=== PATIENT | female | born 1960 | race Caucasian/White ===

== ENCOUNTER → 2018-04-03 | Day surgery (SDC) | payer OTHER ==
[~2018-04-03] MED LIST: HYDROCHLOROTHIA25 MG PO; HYOSCYAMINE SULFATE 0.5 MG/ML INJ ONE; LIDOCAINE HCL 2% LOCAL INJ 5 ML SDV VIAL INJ ONE; MELOXICAM15 MG PO; MIDAZOLAM HCL 2 MG/2 ML VIAL ONE; PROPOFOL IV EMULSION 10 MG/ML 50 ML VIAL ONE
--- NOTE | 2018-04-03 19:31 | Operative Report ---
DATE OF PROCEDURE: April 03, 2018 REFERRING PHYSICIAN: Dr. Stefania Singh. PROCEDURE PERFORMED: Colonoscopy and polypectomy. INDICATIONS FOR COLONOSCOPY: Surveillance colonoscopy, personal history of colon polyps. MEDICATION: Patient was done under MAC. Please see anesthesiologist's note. PROCEDURE: With the patient in left lateral decubitus position, a flexible fiberoptic Olympus colonoscope was inserted into the rectum with ease and advanced all the way to the cecum. Mucosa overlying the cecum appeared to be within normal limits. Three polyps were hot biopsied from the ascending colon and one polypectomy site was hemoclipped and one polyp was snared. The transverse colon as well as the descending colon other than for some scattered diverticular disease were within normal limits. Two polyps were hot biopsied from the sigmoid colon and 2 polyps were hot biopsied from the rectum. The scope was then retroflexed into the distal rectum and small internal hemorrhoids were noted; none of which was actively bleeding. The scope was then straightened out and was subsequently withdrawn. Patient tolerated the procedure well. IMPRESSION 1. Ascending colon polyps x4, 3 hot biopsied, 1 site hemoclipped and 1 polyp snared. 2. Rule out lipoma ascending colon. 3. Diverticulosis. 4. Sigmoid colon polyp x2, hot biopsied. 5. Rectal polyp x2, hot biopsied. 6. Internal hemorrhoids, none actively bleeding. PLAN: Follow up histology. Initiate high-fiber, low-fat diet. Initiate high-fiber supplement. Patient might benefit from having a followup colonoscopy in 3years. Job#: [id number] RTY cc:STEFANIA SINGH DO
--- OUTSIDE RECORDS SUMMARY | 2018-04-05 13:36 | XMS REPORT ---
Author Author Belle May Organization [employer] Address Unknown Phone Unavailable Care Team Providers Care Pallet Stone Positioner Name Role Phone Belle May CP Unavailable Allergies No Known Allergies Problems Problem Type Condition Code Onset Dates Condition Status Problem BMI 34.0-34.9,adult Z68.34 Active Problem Obesity (BMI 30.0-34.9) E66.9 Active Problem Family history of early CAD Z82.49 Active Problem Vitamin D deficiency E55.9 Active Problem Prediabetes R73.09 Active Medications No Known Medications Results No Known Results Summary Purpose eClinicalWorks Submission
--- OUTSIDE RECORDS SUMMARY | 2018-04-05 13:36 | XMS REPORT | Continuity of Care Document ---
Author Author [facility] Interface Address Unknown Phone Unavailable Problems Problem Status Onset Date Classification Date Reported Comments Source BMI 34.0-34.9,adult Active Problem 02/06/2018 [facility] Obesity Active Problem 03/09/2018 [facility] Family history of early CAD Active Problem 02/06/2018 [facility] Vitamin D deficiency Active Problem 03/09/2018 [facility] Prediabetes Active Problem 03/09/2018 [facility] Family history of ischemic heart disease and other diseases of the circulatory system Active Diagnosis 03/05/2017 [facility] Right foot pain Active Diagnosis 02/06/2018 [facility] Primary osteoarthritis of left knee Active Problem 02/06/2018 [facility] Other iron deficiency anemia Active Problem 03/09/2018 [facility] HTN , benign Active Problem 03/09/2018 [facility] Leukocytosis, unspecified Active Problem 03/09/2018 [facility] Post-nasal drainage Active Diagnosis 10/09/2017 [facility] Sore throat Active Diagnosis 10/09/2017 [facility] BMI 33.0-33.9,adult Active Problem 03/09/2018 [facility] Overweight Active Problem 11/21/2016 [facility] Anemia, unspecified type Active Diagnosis 01/27/2018 [facility] Encntr for general adult medical exam w/o abnormal findings Active Diagnosis 03/05/2017 [facility] Screening for colon cancer Active Diagnosis 03/05/2017 [facility] Cough Active Diagnosis 11/21/2016 [facility] Routine general medical examination at a health care facility Active Diagnosis 03/09/2018 [facility] History of total left knee replacement Active Problem 03/09/2018 [facility] History of foot fracture Active Diagnosis 03/09/2018 [facility] Encounter for screening colonoscopy Active Diagnosis 03/09/2018 [facility] Encounter for screening mammogram for breast cancer Active Diagnosis 03/09/2018 [facility] Microscopic hematuria Active Diagnosis 04/17/2016 [facility] Lesion or mass of paranasal sinuses Active Diagnosis 03/19/2016 [facility] Abnormal laboratory test Active Diagnosis 03/07/2016 [facility] Abnormal urinalysis Active Diagnosis 03/07/2016 [facility] Right ankle pain Active Diagnosis 10/25/2015 [facility] Mass of sinus Active Diagnosis 03/03/2016 [facility] Encounter for immunization Active Diagnosis 03/03/2016 [facility] Menopausal and postmenopausal disorder Active Diagnosis 03/03/2016 [facility] Medications Medication Details Route Status Patient Instructions Ordering Provider Order Date Source Augmentin 1 tablet Orally Active 875-125 MG Orally every 12 hrs Robb 11/18/2016 [facility] Vitamin D (Ergocalciferol) 1 capsule Orally Active 75871 UNIT Orally Once a week Skyler 03/04/2016 [facility] Enoxaparin Sodium not defined Subcutaneous Active 30 MG/0.3ML Subcutaneous Joseluis [facility] Meloxicam 1 tablet Orally Active 15 MG Orally Once a day Skyler [facility] Hydrocodone-Acetaminophen (Schedule II Drug) TK 1 TO 2 TS PO Q 6 TO 8 H PRN P Oral Active 10-325 MG Oral Skyler [facility] Cephalexin TK ONE C PO QID Oral Active 500 MG Oral Joseluis [facility] Hydrochlorothiazide 1 tablet in the morning Orally Active 25 MG Orally Once a day Skyler [facility] NO OTC meds taken not defined NA Active Joseluis [facility] Meloxicam 1 tablet Orally Active 15 MG Orally Once a day Joseluis [facility] NO OTC meds taken Unknown NA Active Skyler [facility] Meloxicam 1 tablet Orally Active 15 MG Orally Once a day [place] [facility] Allergies, Adverse Reactions, Alerts Substance Category Reaction Severity Reaction type Status Date Reported Comments Source N.K.D.A. Adverse Reaction Info Not Available Adverse Reaction Active 03/02/2018 [facility] Immunizations Immunization Date Given Site Status Last Updated Comments Source FLU 3YRS & [place] [id number] 02/29/2016 completed [facility] Results Order Name Results Value Reference Range Date Interpretation Comments Source Vital Signs Vital Sign Value Date Comments Source Weight 197 03/02/2018 [facility] Height 64 03/02/2018 [facility] Heart Rate 86 03/02/2018 [facility] Diastolic (mm Hg) 72 03/02/2018 [facility] Systolic (mm Hg) 126 03/02/2018 [facility] Weight 199 02/04/2018 [facility] Height 64 02/04/2018 [facility] Heart Rate 114 02/04/2018 [facility] Diastolic (mm Hg) 84 02/04/2018 [facility] Systolic (mm Hg) 138 02/04/2018 [facility] Weight 206 01/25/2018 [facility] Height 64 01/25/2018 [facility] Temperature Oral (F) 98.5 F 01/25/2018 [facility] Heart Rate 101 01/25/2018 [facility] Diastolic (mm Hg) 84 01/25/2018 [facility] Systolic (mm Hg) 144 01/25/2018 [facility] Weight 205 10/08/2017 [facility] Height 64 10/08/2017 [facility] Temperature Oral (F) 98.3 F 10/08/2017 [facility] Heart Rate 87 10/08/2017 [facility] Diastolic (mm Hg) 80 10/08/2017 [facility] Systolic (mm Hg) 140 10/08/2017 [facility] Weight 200 03/02/2017 [facility] Height 64 03/02/2017 [facility] Heart Rate 84 03/02/2017 [facility] Diastolic (mm Hg) 80 03/02/2017 [facility] Systolic (mm Hg) 124 03/02/2017 [facility] Weight 208 11/18/2016 [facility] Height 64 11/18/2016 [facility] Temperature Oral (F) 98.5 F 11/18/2016 [facility] Heart Rate 101 11/18/2016 [facility] Diastolic (mm Hg) 84 11/18/2016 [facility] Systolic (mm Hg) 120 11/18/2016 [facility] Weight 200 02/29/2016 [facility] Height 64 02/29/2016 [facility] Diastolic (mm Hg) 74 02/29/2016 [facility] Systolic (mm Hg) 126 02/29/2016 [facility] Weight 201 10/19/2015 [facility] Height 64 10/19/2015 [facility] Heart Rate 82 10/19/2015 [facility] Diastolic (mm Hg) 74 10/19/2015 [facility] Systolic (mm Hg) 118 10/19/2015 [facility] Weight 194 03/13/2015 [facility] Height 64 03/13/2015 [facility] Diastolic (mm Hg) 76 03/13/2015 [facility] Systolic (mm Hg) 124 03/13/2015 [facility] Weight 194 02/27/2015 [facility] Height 64 02/27/2015 [facility] Heart Rate 78 02/27/2015 [facility] Diastolic (mm Hg) 72 02/27/2015 [facility] Systolic (mm Hg) 116 02/27/2015 [facility] Encounters Location Location Details Encounter Type Encounter Number Reason For Visit Attending Provider ADM Date DC Date Status Source [facility] PHYSICAL EXAM/FBW [id number] 02/27/2015 02/27/2015 [facility] PHYSICAL EXAM/FBW [id number] 02/27/2015 02/27/2015 [facility] PHYSICAL EXAM/FBW [id number] 02/27/2015 02/27/2015 [facility] PHYSICAL EXAM/FBW [id number] 02/27/2015 02/27/2015 [facility] PHYSICAL EXAM/FBW [id number] 02/27/2015 02/27/2015 [facility] PHYSICAL EXAM/FBW [id number] 02/27/2015 02/27/2015 [facility] PHYSICAL EXAM/FBW [id number] 02/27/2015 02/27/2015 [facility] PHYSICAL EXAM/FBW [id number] 02/27/2015 02/27/2015 [facility] PHYSICAL EXAM/FBW [id number] 02/27/2015 02/27/2015 [facility] PHYSICAL EXAM/FBW [id number] 02/27/2015 02/27/2015 [facility] 2 week follow up [id number] 03/13/2015 03/13/2015 [facility] 2 week follow up [id number] 03/13/2015 03/13/2015 [facility] 2 week follow up [id number] 03/13/2015 03/13/2015 [facility] 2 week follow up [id number] 03/13/2015 03/13/2015 [facility] 2 week follow up [id number] 03/13/2015 03/13/2015 [facility] 2 week follow up [id number] 03/13/2015 03/13/2015 [facility] 2 week follow up [id number] 03/13/2015 03/13/2015 [facility] 2 week follow up [id number] 03/13/2015 03/13/2015 [facility] 2 week follow up [id number] 03/13/2015 03/13/2015 [facility] right ankle is swollen [id number] 10/19/2015 10/19/2015 [facility] right ankle is swollen [id number] 10/19/2015 10/19/2015 [facility] right ankle is swollen [id number] 10/19/2015 10/19/2015 [facility] right ankle is swollen [id number] 10/19/2015 10/19/2015 [facility] right ankle is swollen [id number] 10/19/2015 10/19/2015 [facility] right ankle is swollen [id number] 10/19/2015 10/19/2015 [facility] right ankle is swollen [id number] 10/19/2015 10/19/2015 [facility] right ankle is swollen [id number] 10/19/2015 10/19/2015 [facility] PHYSICAL/FBW [id number] 02/29/2016 02/29/2016 [facility] PHYSICAL/FBW [id number] 02/29/2016 02/29/2016 [facility] PHYSICAL/FBW [id number] 02/29/2016 02/29/2016 [facility] PHYSICAL/FBW [id number] 02/29/2016 02/29/2016 [facility] PHYSICAL/FBW [id number] 02/29/2016 02/29/2016 [facility] PHYSICAL/FBW [id number] 02/29/2016 02/29/2016 [facility] PHYSICAL/FBW [id number] 02/29/2016 02/29/2016 [facility] Test results [id number] 03/04/2016 03/04/2016 [facility] Test results [id number] 03/04/2016 03/04/2016 [facility] Test results [id number] 03/04/2016 03/04/2016 [facility] Test results [id number] 03/04/2016 03/04/2016 [facility] Test results [id number] 03/04/2016 03/04/2016 [facility] Test results [id number] 03/04/2016 03/04/2016 [facility] redo urinals [id number] 03/06/2016 03/06/2016 [facility] redo urinals [id number] 03/06/2016 03/06/2016 [facility] redo urinals [id number] 03/06/2016 03/06/2016 [facility] redo urinals [id number] 03/06/2016 03/06/2016 [facility] redo urinals [id number] 03/06/2016 03/06/2016 [facility] referrel [id number] 03/06/2016 03/06/2016 [facility] referrel [id number] 03/06/2016 03/06/2016 [facility] referrel [id number] 03/06/2016 03/06/2016 [facility] referrel [id number] 03/06/2016 03/06/2016 [facility] Unknown [id number] 03/18/2016 03/18/2016 [facility] Unknown [id number] 03/18/2016 03/18/2016 [facility] Unknown [id number] 03/18/2016 03/18/2016 [facility] Test results [id number] 04/09/2016 04/09/2016 [facility] Test results [id number] 04/09/2016 04/09/2016 [facility] Retroperitoneal eg,renal,aorta,nodes complete - US/ Richard [id number] 04/16/2016 04/16/2016 [facility] Internal [facility] Procedures Procedure Code Date Perfomer Comments Source
--- OUTSIDE RECORDS SUMMARY | 2018-04-05 13:37 | XMS REPORT ---
Author Richard Allen [facility] eClinicalWorks Address Unknown Phone Unavailable Care Team Providers Care Mechanical Manufacturing Technician Name Role Phone Richard Holland Unavailable Encounters Encounter Location Date PHYSICAL/FBW [facility] Feb 29, 2016 Test results [facility] Mar 04, [address] [facility] Mar 06[facility] [address] [facility] Mar 06, 2016 PHYSICAL EXAM/FBW [facility] Feb 27, 2015 2 week follow up [facility] Mar 13, 2015 right ankle is swollen [facility] October 19, 2015 Unknown [facility] Mar 18, 2016 Problems Problem Type Condition ICD-9 Code Onset Dates Condition Status Problem Obesity (BMI 30.0-34.9) E66.9 Active Problem Vitamin D deficiency E55.9 Active Problem BMI 34.0-34.9,adult Z68.34 Active Problem Overweight E66.3 Active Assessment Lesion or mass of paranasal sinuses J34.89 Active Problem Prediabetes R73.09 Active Problem BMI 33.0-33.9,adult Z68.33 Active Social History Social History Element Qualifiers Date Reported Ethnicity . Status , Is lao your primary language? Yes Feb 29, 2016 children . 3 Feb 29, 2016 Tobacco Use: . Are you a: never smoker Feb 29, 2016 Use of recreational / street drugs? . Answer: No Feb 29, 2016 Where or with whom do you live ? . 3 Feb 29, 2016 Do you have pets? . Status: No Feb 29, 2016 Marital Status: . Feb 29, 2016 Caffeine intake? . Status: Yes, What type: Coffee, Soft Drinks, 1 - 2 cup(s) a day, 1 -2 can(s)/bottle(s) a day Feb 29, 2016 Do you exercise? . Answer: Yes, Type: walking Feb 29, 2016 Do you drink alcohol? . 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
--- OUTSIDE RECORDS SUMMARY | 2018-04-05 13:37 | XMS REPORT ---
Author Author Echo Zamudio [facility] [place] eClinicalWorks Address Unknown Phone Unavailable Care Team Providers Care Digital Design Engineer Name Role Phone Echo Zamudio Unavailable Allergies, Adverse Reactions, Alerts Substance Reaction Event Type N.K.D.A. Info Not Available Non Drug Allergy Encounters Encounter Location Date PHYSICAL EXAM/FBW [facility] Feb 27, 2015 2 week follow up [facility] Mar 13, 2015 right ankle is swollen [facility] October 19, 2015 Problems Problem Type Condition ICD-9 Code Onset Dates Condition Status Problem Prediabetes R73.09 Active Problem BMI 33.0-33.9,adult Z68.33 Active Problem Vitamin D deficiency E55.9 Active Problem Overweight E66.3 Active Assessment Right ankle pain M25.571 Active Medications Medication Code System Code Instructions Start Date End Date Status Dosage NO OTC meds taken Unknown 0 Active Unknown Meloxicam MEDISPAN [address]-51 15 MG Orally Once a day Active 1 tablet Social History Social History Element Qualifiers Date Reported Ethnicity . Status , Is kyrgyz your primary language? Yes October 19, 2015 children . 3 October 19, 2015 Tobacco Use: . Are you a: never smoker October 19, 2015 Use of recreational / street drugs? . Answer: No October 19, 2015 Where or with whom do you live ? . 3 October 19, 2015 Do you have pets? . Status: No October 19, 2015 Marital Status: . October 19, 2015 Caffeine intake? . Status: Yes, What type: Coffee, Soft Drinks, 1 - 2 cup(s) a day, 1 -2 can(s)/bottle(s) a day October 19, 2015 Do you exercise? . Answer: Yes, Type: walking October 19, 2015 Do you drink alcohol? . 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 19, 2015 Family history Qualifier Description Comment Date Reported Maternal Grandmother Comment not available October 19, 2015 Paternal Grandmother Comment not available October 19, 2015 Siblings heart attack, 1 brother October 19, 2015 Maternal Grandfather colon cancer October 19, 2015 Children alive Comment not available October 19, 2015 Father alive hypertension October 19, 2015 Paternal Grandfather Comment not available October 19, 2015 Mother heart attack, heart disease October 19, 2015 Other: Comment not available October 19, 2015 Vital Signs Date/Time: October 19, 2015 Weight 201 lbs Height 64 in Cardiac Monitoring Heart Rate 82 /min Blood Pressure Diastolic 74 mm Hg Blood Pressure Systolic 118 mm Hg Summary Purpose eClinicalWorks Submission
--- OUTSIDE RECORDS SUMMARY | 2018-04-05 13:37 | XMS REPORT ---
Author Author Richard Holland Organization eClinicalWorks Address Unknown Phone Unavailable Care Team Providers Care Timber Faller Name Role Phone Richard Holland CP Unavailable Encounters Encounter Location Date PHYSICAL/FBW [facility] Feb 29, 2016 Test results [facility] Mar 04, 2016 redo urinals [facility] Mar 06, 2016 referrel [facility] Mar 06, 2016 PHYSICAL EXAM/FBW [facility] Feb 27, 2015 2 week follow up [facility] Mar 13, 2015 right ankle is swollen [facility] October 19, 2015 Retroperitoneal eg,renal,aorta,nodes complete - US/ Richard [facility] Apr 16, 2016 Unknown [facility] Mar 18, 2016 Test results [facility] Apr 09, 2016 Problems Problem Type Condition ICD-9 Code Onset Dates Condition Status Problem Obesity (BMI 30.0-34.9) E66.9 Active Problem Vitamin D deficiency E55.9 Active Problem BMI 34.0-34.9,adult Z68.34 Active Problem Overweight E66.3 Active Assessment Microscopic hematuria R31.29 Active Problem Prediabetes R73.09 Active Problem BMI 33.0-33.9,adult Z68.33 Active Medications Medication Code System Code Instructions Start Date End Date Status Dosage NO OTC meds taken Unknown 0 Active Unknown Meloxicam MEDISPAN [address]-87 15 MG Orally Once a day Active 1 tablet Social History Social History Element Qualifiers Date Reported Ethnicity . Status , Is yi your primary language? Yes Feb 29, 2016 [...]
--- OUTSIDE RECORDS SUMMARY | 2018-04-05 13:37 | XMS REPORT ---
Author Author Belle May Organization eClinicalWorks Address Unknown Phone Unavailable Care Team Providers Care Cardiac Nurse Name Role Phone Belle May CP Unavailable Allergies No Known Allergies Problems Problem Type Condition Code Onset Dates Condition Status Problem BMI 34.0-34.9,adult Z68.34 Active Problem Obesity (BMI 30.0-34.9) E66.9 Active Problem Family history of early CAD Z82.49 Active Assessment Family history of ischemic heart disease and other diseases of the circulatory system Z82.49 Active Problem Vitamin D deficiency E55.9 Active Problem Prediabetes R73.09 Active Medications No Known Medications Results No Known Results Summary Purpose eClinicalWorks Submission
--- OUTSIDE RECORDS SUMMARY | 2018-04-05 13:37 | XMS REPORT ---
Author Author Karen Huggins Organization eClinicalWorks Address Unknown Phone Unavailable Care Team Providers Care Environmental Safety Specialist Name Role Phone Karen Huggins CP Unavailable Allergies, Adverse Reactions, Alerts Substance Reaction Event Type N.K.D.A. Info Not Available Non Drug Allergy Problems Problem Type Condition Code Onset Dates Condition Status Assessment Right foot pain M79.671 Active Problem Vitamin D deficiency E55.9 Active Problem Primary osteoarthritis of left knee M17.12 Active Assessment Other iron deficiency anemia D50.8 Active Assessment HTN (hypertension), benign I10 Active Problem Other iron deficiency anemia D50.8 Active Problem Leukocytosis, unspecified D72.829 Active Problem HTN (hypertension), benign I10 Active Problem Obesity (BMI 30.0-34.9) E66.9 Active Problem Prediabetes R73.09 Active Problem Family history of early CAD Z82.49 Active Problem BMI 34.0-34.9,adult Z68.34 Active Medications Medication Code System Code Instructions Start Date End Date Status Dosage Enoxaparin Sodium ND 33073702731 30 MG/0.3ML Subcutaneous Active not defined Meloxicam ND 91507038502 15 MG Orally Once a day Active 1 tablet Hydrocodone-Acetaminophen ND 67113856844 10-325 MG Oral Active (Schedule II Drug) TK 1 TO 2 TS PO Q 6 TO 8 H PRN P Cephalexin ND 90727201040 500 MG Oral Active TK ONE C PO QID Hydrochlorothiazide ND 54403180367 25 MG Orally Once a day Active 1 tablet in the morning Vital Signs Date/Time: Feb 04, 2018 BMI 34.15 Index Weight 199 lbs Height 64 in Cardiac Monitoring Heart Rate 114 /min Blood Pressure Diastolic 84 mm Hg Blood Pressure Systolic 138 mm Hg Results Name Result Date Reference Range Unit Abnormality Flag CBC ----Platelets 461h [id number] ----NEUTROPHILS MID-1.2,GRA-5.9 20180204 ----MCHC 32.1 20180204 ----MCH 30.5 20180204 ----MCV 95.2 20180204 ----RDW 12.9 20180204 ----WBC 9.3 20180204 ----Neutrophils (Absolute) mid-12.4H 20180204 ----RBC 3.83 20180204 ----Hemoglobin 11.7 20180204 ----Hematocrit 36.5L 20180204 Summary Purpose eClinicalWorks Submission
--- OUTSIDE RECORDS SUMMARY | 2018-04-05 13:37 | XMS REPORT ---
Author Richard Allen [facility] eClinicalWorks Address Unknown Phone Unavailable Care Team Providers Care Investigation Specialist Name Role Phone Richard Holland Unavailable Encounters Encounter Location Date PHYSICAL/FBW [facility] Feb 29, 2016 Test results [facility] Mar 04, 2016 PHYSICAL EXAM/FBW [facility] Feb 27, 2015 2 week follow up [facility] Mar 13, 2015 right ankle is swollen [facility] October 19, 2015 Problems Problem Type Condition ICD-9 Code Onset Dates Condition Status Problem Obesity (BMI 30.0-34.9) E66.9 Active Problem Vitamin D deficiency E55.9 Active Problem BMI 34.0-34.9,adult Z68.34 Active Problem Overweight E66.3 Active Problem Prediabetes R73.09 Active Problem BMI 33.0-33.9,adult Z68.33 Active Medications Medication Code System Code Instructions Start Date End Date Status Dosage Vitamin D (Ergocalciferol) [facility] [address]-89 65383 UNIT Orally Once a week Mar 04, 2016 Apr 03, 2016 Active 1 capsule Social History Social History Element Qualifiers Date Reported Ethnicity . Status , Is bengali your primary language? Yes Feb 29, 2016 [...]
--- OUTSIDE RECORDS SUMMARY | 2018-04-05 13:37 | XMS REPORT ---
Author Author Richard Holalnd Organization eClinicalWorks Address Unknown Phone Unavailable Care Team Providers Care Jacquard Lace Weaver Name Role Phone Richard Holland CP Unavailable Allergies, Adverse Reactions, Alerts Substance Reaction Event Type N.K.D.A. Info Not Available Non Drug Allergy Problems Problem Type Condition Code Onset Dates Condition Status Assessment Vitamin D deficiency E55.9 Active Assessment BMI 34.0-34.9,adult Z68.34 Active Assessment Prediabetes R73.09 Active Assessment Family history of early CAD Z82.49 Active Assessment Obesity (BMI 30.0-34.9) E66.9 Active Problem BMI 34.0-34.9,adult Z68.34 Active Problem Obesity (BMI 30.0-34.9) E66.9 Active Problem Family history of early CAD Z82.49 Active Assessment Encntr for general adult medical exam w/o abnormal findings Z00.00 Active Assessment Screening for colon cancer Z12.11 Active Problem Vitamin D deficiency E55.9 Active Problem Prediabetes R73.09 Active Medications Medication Code System Code Instructions Start Date End Date Status Dosage NO OTC meds taken NDC 0 Active not defined Vital Signs Date/Time: Mar 02, 2017 BMI 34.33 Index Weight 200 lbs Height 64 in Cardiac Monitoring Heart Rate 84 /min Blood Pressure Diastolic 80 mm Hg Blood Pressure Systolic 124 mm Hg Results Name Result Date Reference Range Unit Abnormality Flag Lipid Panel ----LDL Cholesterol Calc 93 20170302 0-99 mg/dL ----Cholesterol, Total 158 20170302 100-199 mg/dL ----Triglycerides 91 12651009 0-149 mg/dL ----HDL Cholesterol 47 20170302 >39 mg/dL ----VLDL Cholesterol Maurice 18 20170302 5-40 mg/dL Comp. Metabolic Panel (14) ----Sodium, Serum 139 20170302 134-144 mmol/L ----BUN/Creatinine Ratio 14 20170302 9-23 ----Chloride, Serum 100 20170302 96-106 mmol/L ----Potassium, Serum 4.1 32001273 3.5-5.2 mmol/L ----Calcium, Serum 8.6 97219675 8.7-10.2 mg/dL L ----Protein, Total, Serum 6.7 81362812 6.0-8.5 g/dL ----Carbon Dioxide, Total 26 20170302 18-29 mmol/L ----A/G Ratio 1.8 78815500 1.2-2.2 ----eGFR If NonAfricn Am 92 77798997 >59 mL/min/1.73 ----Bilirubin, Total 0.4 07990524 0.0-1.2 mg/dL ----eGFR If Africn Am 106 95235119 >59 mL/min/1.73 ----BUN 10 20170302 6-24 mg/dL ----Albumin, Serum 4.3 68467501 3.5-5.5 g/dL ----Globulin, Total 2.4 62955029 1.5-4.5 g/dL ----Creatinine, Serum 0.74 07251128 0.57-1.00 mg/dL ----ALT (SGPT) 9 20170302 0-32 IU/L ----Glucose, Serum 97 20170302 65-99 mg/dL ----Alkaline Phosphatase, S 66 20170302 39-117 IU/L ----AST (SGOT) 11 47480012 0-40 IU/L Summary Purpose eClinicalWorks Submission
--- OUTSIDE RECORDS SUMMARY | 2018-04-05 13:37 | XMS REPORT ---
Author Author Richard Holland [facility] [place] eClinicalWorks Address Unknown Phone Unavailable Care Team Providers Care Drying Machine Operator Name Role Phone Richard Holland CP Unavailable Encounters Encounter Location Date PHYSICAL EXAM/FBW [facility] Feb 27, 2015 2 week follow up [facility] Mar 13, 2015 Problems Problem Type Condition ICD-9 Code Onset Dates Condition Status Problem Prediabetes R73.09 Active Problem BMI 33.0-33.9,adult Z68.33 Active Problem Vitamin D deficiency E55.9 Active Assessment Vitamin D deficiency E55.9 Active Problem Overweight E66.3 Active Assessment Prediabetes R73.09 Active Medications Medication Code System Code Instructions Start Date End Date Status Dosage NO OTC meds taken Unknown 0 Active Unknown Meloxicam MEDISPAN [address]-14 15 MG Orally Once a day Active 1 tablet Social History Social History Element Qualifiers Date Reported Ethnicity . Status , Is ugandan your primary language? Yes Mar 13, 2015 children . 3 Mar 13, 2015 Tobacco Use: . Are you a: never smoker Mar 13, 2015 Use of recreational / street drugs? . Answer: No Mar 13, 2015 Where or with whom do you live ? . 3 Mar 13, 2015 Do you have pets? . Status: No Mar 13, 2015 Marital Status: . Mar 13, 2015 Caffeine intake? . Status: Yes, What type: Coffee, Soft Drinks, 1 - 2 cup(s) a day, 1 -2 can(s)/bottle(s) a day Mar 13, 2015 Do you exercise? . Answer: Yes, Type: walking Mar 13, 2015 Do you drink alcohol? . 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, 2015 Family history Qualifier Description Comment Date Reported Maternal Grandmother Comment not available Mar 13, 2015 Paternal Grandmother Comment not available Mar 13, 2015 Siblings heart attack, 1 brother Mar 13, 2015 Maternal Grandfather colon cancer Mar 13, 2015 Children alive Comment not available Mar 13, 2015 Father alive hypertension Mar 13, 2015 Paternal Grandfather Comment not available Mar 13, 2015 Mother heart attack, heart disease Mar 13, 2015 Other: Comment not available Mar 13, 2015 Vital Signs Date/Time: Mar 13, 2015 Weight 194 lbs Height 64 in Blood Pressure Diastolic 76 mm Hg Blood Pressure Systolic 124 mm Hg Summary Purpose eClinicalWorks Submission
--- OUTSIDE RECORDS SUMMARY | 2018-04-05 13:37 | XMS REPORT ---
Author Author Richard Holland [facility] eClinicalWorks Address Unknown Phone Unavailable Care Team Providers Care Telegraph Editor Name Role Phone Richard Holland CP Unavailable Allergies, Adverse Reactions, Alerts Substance Reaction Event Type N.K.D.A. Info Not Available Non Drug Allergy Encounters Encounter Location Date PHYSICAL EXAM/FBW [facility] Feb 27, 2015 Problems Problem Type Condition ICD-9 Code Onset Dates Condition Status Assessment Overweight E66.3 Active Assessment Prediabetes R73.09 Active Assessment BMI 33.0-33.9,adult Z68.33 Active Problem Prediabetes R73.09 Active Problem BMI 33.0-33.9,adult Z68.33 Active Problem Vitamin D deficiency E55.9 Active Assessment Screening for malignant neoplasm of breast Z12.39 Active Assessment Vitamin D deficiency E55.9 Active Problem Overweight E66.3 Active Assessment Routine general medical examination at a health care facility Z00.00 Active Medications Medication Code System Code Instructions Start Date End Date Status Dosage NO OTC meds taken Unknown 0 Active Unknown Meloxicam MEDISPAN [address]-94 15 MG Orally Once a day Active 1 tablet Social History Social History Element Qualifiers Date Reported Ethnicity . Status , Is uzbek your primary language? Yes Feb 27, 2015 children . 3 Feb 27, 2015 Tobacco Use: . Are you a: never smoker Feb 27, 2015 Use of recreational / street drugs? . Answer: No Feb 27, 2015 Where or with whom do you live ? . 3 Feb 27, 2015 Do you have pets? . Status: No Feb 27, 2015 Marital Status: . Feb 27, 2015 Caffeine intake? . Status: Yes, What type: Coffee, Soft Drinks, 1 - 2 cup(s) a day, 1 -2 can(s)/bottle(s) a day Feb 27, 2015 Do you exercise? . Answer: Yes, Type: walking Feb 27, 2015 Do you drink alcohol? . 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
--- OUTSIDE RECORDS SUMMARY | 2018-04-05 13:37 | XMS REPORT ---
Author Author Belle May [facility] eClinicalWorks Address Unknown Phone Unavailable Care Team Providers Care Community Artist Name Role Phone Belle May Unavailable Encounters Encounter Location Date PHYSICAL/FBW [facility] Feb 29, 2016 Test results [facility] Mar 04, 2016 redo urinals [facility] Mar 06, 2016 referrel [facility] Mar 06, 2016 PHYSICAL EXAM/FBW [facility] Feb 27, 2015 2 week follow up [facility] Mar 13, 2015 right ankle is swollen [facility] October 19, 2015 Unknown [facility] Mar 18, 2016 Test results [facility] Apr 09, 2016 [...] Date Reported Ethnicity . Status , Is south sudanese your primary language? Yes Feb 29, 2016 [...]
--- OUTSIDE RECORDS SUMMARY | 2018-04-05 13:37 | XMS REPORT ---
Author Author Echo Zamudio Organization eClinicalWorks Address Unknown Phone Unavailable Care Team Providers Care Polisher Sand Name Role Phone Robb Echo CP Unavailable Allergies, Adverse Reactions, Alerts Substance Reaction Event Type N.K.D.A. Info Not Available Non Drug Allergy Problems Problem Type Condition Code Onset Dates Condition Status Assessment Prediabetes R73.09 Active Problem Obesity (BMI 30.0-34.9) E66.9 Active Problem Vitamin D deficiency E55.9 Active Problem BMI 34.0-34.9,adult Z68.34 Active Problem Overweight E66.3 Active Assessment Cough R05 Active Problem Prediabetes R73.09 Active Problem BMI 33.0-33.9,adult Z68.33 Active Medications Medication Code System Code Instructions Start Date End Date Status Dosage Meloxicam [facility] [address]-67 15 MG Orally Once a day Active 1 tablet NO OTC meds taken NDC 0 Active not defined Augmentin [facility] [address]-84 875-125 MG Orally every 12 hrs Nov 18, 2016 Nov 25, 2016 Active 1 tablet Vital Signs Date/Time: Nov 18, 2016 BMI 35.70 Index Weight 208 lbs Height 64 in Temperature 98.5 F Cardiac Monitoring Heart Rate 101 /min Blood Pressure Diastolic 84 mm Hg Blood Pressure Systolic 120 mm Hg Results Name Result Date Reference Range Unit Abnormality Flag CBC ----Platelets 375 [id number] ----NEUTROPHILS MID-1.0,GRA-6.1 73828492 ----MCHC 33.6 37158993 ----MCH 31.9 32527921 ----MCV 94.9 64881027 ----WBC 9.1 60587270 ----RDW 13.3 26082541 ----RBC 4.20 69908495 ----Hemoglobin 13.4 86563648 ----Hematocrit 39.9 00761627 [place] 1MGx4 Summary Purpose eClinicalWorks Submission
--- OUTSIDE RECORDS SUMMARY | 2018-04-05 13:37 | XMS REPORT ---
Author Richard Allen Organization eClinicalWorks Address Unknown Phone Unavailable Care Team Providers Care Security Software Engineer Name Role Phone Richard Holland CP Unavailable Encounters Encounter Location Date PHYSICAL/FBW [facility] Feb 29, 2016 Test results [facility] Mar 04, 2016 redo urinals [facility] Mar 06, 2016 referrel [facility] Mar 06, 2016 PHYSICAL EXAM/FBW [facility] Feb 27, 2015 2 week follow up [facility] Mar 13, 2015 right ankle is swollen [facility] October 19, 2015 Problems Problem Type Condition ICD-9 Code Onset Dates Condition Status Problem Obesity (BMI 30.0-34.9) E66.9 Active Problem Vitamin D deficiency E55.9 Active Problem BMI 34.0-34.9,adult Z68.34 Active Problem Overweight E66.3 Active Problem Prediabetes R73.09 Active Problem BMI 33.0-33.9,adult Z68.33 Active Social History Social History Element Qualifiers Date Reported Ethnicity . Status , Is tamazight your primary language? Yes Feb 29, 2016 [...]
--- OUTSIDE RECORDS SUMMARY | 2018-04-05 13:37 | XMS REPORT ---
Author Richard Allen [facility] eClinicalWorks Address Unknown Phone Unavailable Care Team Providers Care Supervisor Dry Cell Assembly Name Role Phone Richard Holland Unavailable Encounters Encounter Location Date PHYSICAL/FBW [facility] Feb 29, 2016 Test results [facility] Mar 04, 2016 redo urinals [facility] Mar 06, 2016 PHYSICAL EXAM/FBW [facility] Feb 27, 2015 2 week follow up [facility] Mar 13, 2015 right ankle is swollen [facility] October 19, 2015 Problems Problem Type Condition ICD-9 Code Onset Dates Condition Status Assessment Abnormal laboratory test R89.9 Active Problem Obesity (BMI 30.0-34.9) E66.9 Active Problem Vitamin D deficiency E55.9 Active Problem BMI 34.0-34.9,adult Z68.34 Active Problem Overweight E66.3 Active Assessment Abnormal urinalysis R82.90 Active Problem Prediabetes R73.09 Active Problem BMI 33.0-33.9,adult Z68.33 Active Medications Medication Code System Code Instructions Start Date End Date Status Dosage Vitamin D (Ergocalciferol) [facility] [address]-36 36991 UNIT Orally Once a week Mar 04, 2016 Apr 03, 2016 Active 1 capsule Meloxicam [facility] [address]-21 15 MG Orally Once a day Active 1 tablet NO OTC meds taken Unknown 0 Active Unknown Social History Social History Element Qualifiers Date Reported Ethnicity . Status , Is zambian your primary language? Yes Feb 29, 2016 [...]
--- OUTSIDE RECORDS SUMMARY | 2018-04-05 13:37 | XMS REPORT ---
Author Karen Ross [facility] eClinicalWorks Address Unknown Phone Unavailable Care Team Providers Care Ovens Supervisor Name Role Phone Karen Huggins CP Unavailable Allergies, Adverse Reactions, Alerts Substance Reaction Event Type N.K.D.A. Info Not Available Non Drug Allergy Problems Problem Type Condition Code Onset Dates Condition Status Problem BMI 34.0-34.9,adult Z68.34 Active Problem Obesity (BMI 30.0-34.9) E66.9 Active Problem Family history of early CAD Z82.49 Active Assessment Post-nasal drainage R09.82 Active Assessment Sore throat J02.9 Active Problem Vitamin D deficiency E55.9 Active Problem Prediabetes R73.09 Active Medications Medication Code System Code Instructions Start Date End Date Status Dosage NO OTC meds taken NDC 0 Active not defined Meloxicam NDC 19098740277 15 MG Orally Once a day Active 1 tablet Vital Signs Date/Time: October 08, 2017 BMI 35.18 Index Weight 205 lbs Height 64 in Temperature 98.3 F Cardiac Monitoring Heart Rate 87 /min Blood Pressure Diastolic 80 mm Hg Blood Pressure Systolic 140 mm Hg Results No Known Results Summary Purpose eClinicalWorks Submission
--- OUTSIDE RECORDS SUMMARY | 2018-04-05 13:37 | XMS REPORT ---
Author Author Richard Holland Organization [employer] Address Unknown Phone Unavailable Care Team Providers Care Manager Case Name Role Phone Richard Holland CP Unavailable Allergies, Adverse Reactions, Alerts Substance Reaction Event Type N.K.D.A. Info Not Available Non Drug Allergy Problems Problem Type Condition Code Onset Dates Condition Status Assessment Routine general medical examination at a health care facility Z00.00 Active Problem Vitamin D deficiency E55.9 Active Problem Other iron deficiency anemia D50.8 Active Problem Leukocytosis, unspecified D72.829 Active Problem HTN (hypertension), benign I10 Active Problem Obesity (BMI 30.0-34.9) E66.9 Active Problem Prediabetes R73.09 Active Problem History of total left knee replacement Z96.652 Active Problem BMI 33.0-33.9,adult Z68.33 Active Assessment BMI 33.0-33.9,adult Z68.33 Active Assessment Obesity (BMI 30.0-34.9) E66.9 Active Assessment HTN (hypertension), benign I10 Active Assessment Vitamin D deficiency E55.9 Active Assessment History of foot fracture Z87.81 Active Assessment Encounter for screening colonoscopy Z12.11 Active Assessment History of total left knee replacement Z96.652 Active Assessment Encounter for screening mammogram for breast cancer Z12.31 Active Medications Medication Code System Code Instructions Start Date End Date Status Dosage Meloxicam ND 82142229777 15 MG Orally Once a day Active 1 tablet Hydrochlorothiazide NDC 16013423319 25 MG Orally Once a day Active 1 tablet in the morning Hydrocodone-Acetaminophen ND 59426540560 10-325 MG Oral Active (Schedule II Drug) TK 1 TO 2 TS PO Q 6 TO 8 H PRN P Vital Signs Date/Time: Mar 02, 2018 BMI 33.81 Index Weight 197 lbs Height 64 in Cardiac Monitoring Heart Rate 86 /min Blood Pressure Diastolic 72 mm Hg Blood Pressure Systolic 126 mm Hg Results Name Result Date Reference Range Unit Abnormality Flag TSH ----TSH 1.470 66339108 0.450-4.500 uIU/mL CBC With Differential/Platelet ----Basos 1 20180302 Not Estab. % ----MCV 94 17886556 79-97 fL ----Hematocrit 37.5 89644792 34.0-46.6 % ----Eos 1 20180302 Not Estab. % ----MCHC 32.8 38006257 31.5-35.7 g/dL ----Monocytes 12 20180302 Not Estab. % ----MCH 30.9 28220866 26.6-33.0 pg ----Lymphs 28 84665927 Not Estab. % ----Eos (Absolute) 0.1 31659502 0.0-0.4 x10E3/uL ----WBC 5.4 90372461 3.4-10.8 x10E3/uL ----Monocytes(Absolute) 0.7 64203795 0.1-0.9 x10E3/uL ----Lymphs (Absolute) 1.5 70881760 0.7-3.1 x10E3/uL ----Hemoglobin 12.3 42859816 11.1-15.9 g/dL ----Neutrophils (Absolute) 3.1 60062895 1.4-7.0 x10E3/uL ----RBC 3.98 25992506 3.77-5.28 x10E6/uL ----Immature Grans (Abs) 0.0 85752822 0.0-0.1 x10E3/uL ----Immature Granulocytes 0 93538905 Not Estab. % ----Neutrophils 58 28681841 Not Estab. % ----Baso (Absolute) 0.0 46812058 0.0-0.2 x10E3/uL ----RDW 13.6 43387930 12.3-15.4 % ----Platelets 348 66986890 150-379 x10E3/uL Hemoglobin A1c ----Hemoglobin A1c 5.4 44729226 4.8-5.6 % Urinalysis, Routine ----Glucose Negative 95423494 Negative ----Protein Negative 94607148 Negative/Trace ----Occult Blood Negative 20103878 Negative ----Ketones Negative 97006213 Negative ----Urobilinogen,Semi-Qn 0.2 49796846 0.2-1.0 mg/dL ----Nitrite, Urine Negative 95522247 Negative ----Bilirubin Negative 18041376 Negative ----Appearance Clear 20180302 Clear ----WBC Esterase Negative 85646251 Negative ----pH 5.0 07630430 5.0-7.5 ----Microscopic Examination Comment 20180302 ----Urine-Color Yellow 20180302 Yellow ----Specific [place] >=1.030 88790881 1.005-1.030 A Lipid Panel ----LDL Cholesterol Calc 96 00294077 0-99 mg/dL ----VLDL Cholesterol Maurice 23 88477792 5-40 mg/dL ----HDL Cholesterol 46 14070182 >39 mg/dL ----Triglycerides 115 32146801 0-149 mg/dL ----Cholesterol, Total 165 30265488 100-199 mg/dL Comp. Metabolic Panel (14) ----Creatinine 0.75 74148150 0.57-1.00 mg/dL ----BUN 13 92404212 6-24 mg/dL ----eGFR If Africn Am 104 89585377 >59 mL/min/1.73 ----eGFR If NonAfricn Am 90 95284242 >59 mL/min/1.73 ----Sodium 142 83005913 134-144 mmol/L ----BUN/Creatinine Ratio 17 40891951 9-23 ----Chloride 98 36596468 96-106 mmol/L ----Potassium 4.6 36407494 3.5-5.2 mmol/L ----Carbon Dioxide, Total 27 89974685 20-29 mmol/L ----Protein, Total 6.6 69715680 6.0-8.5 g/dL ----Calcium 9.6 81979444 8.7-10.2 mg/dL ----Globulin, Total 2.3 12728962 1.5-4.5 g/dL ----Albumin 4.3 95026037 3.5-5.5 g/dL ----Bilirubin, Total 0.4 32320468 0.0-1.2 mg/dL ----Glucose 98 20180302 65-99 mg/dL ----A/G Ratio 1.9 20180302 1.2-2.2 ----ALT (SGPT) 18 20180302 0-32 IU/L ----Alkaline Phosphatase 63 20180302 39-117 IU/L ----AST (SGOT) 17 20180302 0-40 IU/L Summary Purpose [employer] Submission
--- OUTSIDE RECORDS SUMMARY | 2018-04-05 13:37 | XMS REPORT ---
Author Richard Allen [facility] [employer] Address Unknown Phone Unavailable Care Team Providers Care Clinic Coordinator Name Role Phone Richard Holland CP Unavailable Allergies, Adverse Reactions, Alerts Substance Reaction Event Type N.K.D.A. Info Not Available Non Drug Allergy Encounters Encounter Location Date PHYSICAL/FBW [facility] Feb 29, 2016 PHYSICAL EXAM/FBW [facility] Feb 27, 2015 2 week follow up [facility] Mar 13, 2015 right ankle is swollen [facility] October 19, 2015 Problems Problem Type Condition ICD-9 Code Onset Dates Condition Status Assessment Screening for malignant neoplasm of breast Z12.39 Active Assessment Prediabetes R73.09 Active Assessment Vitamin D deficiency E55.9 Active Problem Obesity (BMI 30.0-34.9) E66.9 Active Problem Vitamin D deficiency E55.9 Active Problem BMI 34.0-34.9,adult Z68.34 Active Problem Overweight E66.3 Active Assessment Routine general medical examination at a health care facility Z00.00 Active Problem Prediabetes R73.09 Active Problem BMI 33.0-33.9,adult Z68.33 Active Assessment Obesity (BMI 30.0-34.9) E66.9 Active Assessment BMI 34.0-34.9,adult Z68.34 Active Assessment Mass of sinus R22.0 Active Assessment Encounter for immunization Z23 Active Assessment Cough R05 Active Assessment Menopausal and postmenopausal disorder N95.9 Active Medications Medication Code System Code Instructions Start Date End Date Status Dosage NO OTC meds taken Unknown 0 Active Unknown Meloxicam MEDISPAN [address]-15 15 MG Orally Once a day Active 1 tablet Social History Social History Element Qualifiers Date Reported Ethnicity . Status , Is egyptian your primary language? 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, 2016 Family history Qualifier Description Comment Date Reported Maternal Grandmother Comment not available Feb 29, 2016 Paternal Grandmother Comment not available Feb 29, 2016 Siblings heart attack, 1 brother Feb 29, 2016 Maternal Grandfather colon cancer Feb 29, 2016 Children alive Comment not available Feb 29, 2016 Father alive hypertension Feb 29, 2016 Paternal Grandfather Comment not available Feb 29, 2016 Mother heart attack, heart disease Feb 29, 2016 Other: Comment not available Feb 29, 2016 Vital Signs Date/Time: Feb 29, 2016 Weight 200 lbs Height 64 in Blood Pressure Diastolic 74 mm Hg Blood Pressure Systolic 126 mm Hg Results Chest 2 views- Xray Immunizations Vaccine Administration Date FLU 3YRS & UP [address]36 Feb 29, 2016 Summary Purpose [employer] Submission
--- OUTSIDE RECORDS SUMMARY | 2018-04-05 13:37 | XMS REPORT ---
Author Author Belle May Organization [employer] Address Unknown Phone Unavailable Care Team Providers Care Parking Enforcer Name Role Phone Belle May CP Unavailable [...]
--- OUTSIDE RECORDS SUMMARY | 2018-04-05 13:37 | XMS REPORT ---
Author Richard Allen Organization [employer] Address Unknown Phone Unavailable Care Team Providers Care Senior Bioinformatics Specialist Name Role Phone Richard Holland CP Unavailable Allergies, Adverse Reactions, Alerts Substance Reaction Event Type N.K.D.A. Info Not Available Non Drug Allergy Problems Problem Type Condition Code Onset Dates Condition Status Assessment Leukocytosis, unspecified D72.829 Active Problem Vitamin D deficiency E55.9 Active Problem Primary osteoarthritis of left knee M17.12 Active Problem Other iron deficiency anemia D50.8 Active Problem Leukocytosis, unspecified D72.829 Active Problem HTN (hypertension), benign I10 Active Problem Obesity (BMI 30.0-34.9) E66.9 Active Problem Prediabetes R73.09 Active Problem Family history of early CAD Z82.49 Active Problem BMI 34.0-34.9,adult Z68.34 Active Assessment Obesity (BMI 30.0-34.9) E66.9 Active Assessment Anemia, unspecified type D64.9 Active Assessment HTN (hypertension), benign I10 Active Medications Medication Code System Code Instructions Start Date End Date Status Dosage Cephalexin [facility] 12650072120 500 MG Oral Active TK ONE C PO QID Enoxaparin Sodium ND 76243791413 30 MG/0.3ML Subcutaneous Active not defined Hydrochlorothiazide ND 79286187333 25 MG Orally Once a day Active 1 tablet in the morning Hydrocodone-Acetaminophen ND 15197610630 10-325 MG Oral Active (Schedule II Drug) TK 1 TO 2 TS PO Q 6 TO 8 H PRN P Vital Signs Date/Time: Jan 25, 2018 BMI 35.36 Index Weight 206 lbs Height 64 in Temperature 98.5 F Cardiac Monitoring Heart Rate 101 /min Blood Pressure Diastolic 84 mm Hg Blood Pressure Systolic 144 mm Hg Results No Known Results Summary Purpose [employer] Submission
== END | disposition home or self-care (01) ==
LOC: OR 13:51
PROVIDERS: ATTEND Internal Medicine Gastroenterology
DX: Z12.11 Encounter for screening for malignant neoplasm of colon (principal); Z86.010 Personal history of colon polyps; K63.5 Polyp of colon; K57.30 Diverticulosis of large intestine without perforation or abscess without bleeding; K62.1 Rectal polyp; K64.8 Other hemorrhoids; I10 Essential (primary) hypertension; F41.9 Anxiety disorder, unspecified; K20.9 Esophagitis, unspecified; Z68.33 Body mass index [BMI] 33.0-33.9, adult
CPT/HCPCS: 45384; 81025; 93005; J1980; J2001; J2250; 45378; 45385

== ENCOUNTER → 2018-04-16 | Day surgery (SDC) | payer BC, OTHER ==
[~2018-04-16] MED LIST changes: +FENTANYL CITRATE/PF 100MCG/2 ML INJ ONE; -HYOSCYAMINE SULFATE 0.5 MG/ML INJ ONE; -LIDOCAINE HCL 2% LOCAL INJ 5 ML SDV VIAL INJ ONE; +METOCLOPRAMIDE HCL 10 MG/2ML VIAL ONE
[2018-04-16 13:55] VITALS: BP 130/81
--- NOTE | 2018-04-16 14:40 | Operative Report ---
DATE OF PROCEDURE: April 16, 2018 REFERRING PHYSICIAN: Dr. Stefania Singh PROCEDURE PERFORMED: Esophagogastroduodenoscopy with biopsies. INDICATIONS FOR EGD: Upper abdominal pain and early satiety. MEDICATION: Patient was done under MAC. Please see anesthesiologist's note. PROCEDURE: With the patient in the left lateral decubitus position, the flexible fiberoptic Olympus gastroscope was introduced into the esophagus under direct visualization without any difficulty. There was some patchy erythema noted in the distal esophagus. The scope was then advanced with ease into the stomach. Mucosa overlying the antrum and the body revealed some patchy erythema and mild to moderate edema, and biopsies were obtained and sent to stain for H. pylori. The pylorus was of normal contour and shape. It was intubated with ease. The scope was advanced all the way to the 2nd portion of the duodenum. Biopsies were obtained from the proximal 2nd portion to rule out sprue. The mucosa overlying the duodenal bulb appeared to be within normal limits. The scope was then withdrawn back into the stomach and retroflexed. The mucosa overlying the fundus and the cardia appeared to be within normal limits. The scope was then straightened out. The stomach was decompressed. The scope was subsequently withdrawn. Patient tolerated the procedure well. IMPRESSION 1. Distal esophagitis, mild. 2. Gastritis, biopsied. Biopsies sent to stain for Helicobacter pylori. 3. Rule out sprue. PLAN: Follow up histology. Initiate Protonix 40 mg 1 p.o. q.a.m. a.c. Job#: [id number] RI cc:STEFANIA SINGH DO
== END | disposition home or self-care (01) ==
LOC: OR 10:40
PROVIDERS: ATTEND Internal Medicine Gastroenterology
DX: K20.9 Esophagitis, unspecified (principal); K29.60 Other gastritis without bleeding; I10 Essential (primary) hypertension; Z68.33 Body mass index [BMI] 33.0-33.9, adult; Z96.652 Presence of left artificial knee joint; Z80.0 Family history of malignant neoplasm of digestive organs; K21.9 Gastro-esophageal reflux disease without esophagitis
CPT/HCPCS: 43239; J2250; J2765

== ENCOUNTER → 2021-04-18 | Day surgery (SDC) | payer BC, OTHER ==
[~2021-04-18] MED LIST changes: +LIDOCAINE HCL 2% LOCAL INJ 5 ML SDV VIAL INJ ONE; +LOSARTAN POTASS25 MG PO; -METOCLOPRAMIDE HCL 10 MG/2ML VIAL ONE; +PROPOFOL IV EMULSION 10 MG/ML 20 ML VIAL ONE; -PROPOFOL IV EMULSION 10 MG/ML 50 ML VIAL ONE
== END | disposition home or self-care (01) ==
LOC: OR 07:33
PROVIDERS: ATTEND Internal Medicine Gastroenterology
DX: K92.1 Melena (principal); D12.0 Benign neoplasm of cecum; K63.9 Disease of intestine, unspecified; K57.30 Diverticulosis of large intestine without perforation or abscess without bleeding; K64.8 Other hemorrhoids; R14.0 Abdominal distension (gaseous); I10 Essential (primary) hypertension; Z01.810 Encounter for preprocedural cardiovascular examination; Z01.812 Encounter for preprocedural laboratory examination; Z20.822 Contact with and (suspected) exposure to COVID-19; Z79.899 Other long term (current) drug therapy; Z68.33 Body mass index [BMI] 33.0-33.9, adult; Z80.0 Family history of malignant neoplasm of digestive organs
CPT/HCPCS: 45380; 93005; J2001; J2250; J2704; J3010; U0002; 45378